=== PATIENT | male | born 2000 | race Caucasian/White ===

== ENCOUNTER 2018-02-07 18:53 | Emergency (ER) | payer BC ==
[~2018-02-07] VITALS: Ht 177.8 cm; Wt 62.6 kg
[2018-02-07] MEDS ORDERED: Keflex500 MG PO (19:54)
== END 2018-02-07 20:04 | disposition home or self-care (01) ==
LOC: ER 18:53
DX: S91.114A Laceration without foreign body of right lesser toe(s) without damage to nail, initial encounter (principal); X58.XXXA Exposure to other specified factors, initial encounter; Y93.01 Activity, walking, marching and hiking; Y92.828 Other wilderness area as the place of occurrence of the external cause
CPT/HCPCS: 12001; 99282

== ENCOUNTER 2019-05-23 12:40 | Emergency (ER) | payer BC ==
[~2019-05-23] VITALS: Ht 175.3 cm; Wt 63.5 kg
[~2019-05-23 12:40] MED LIST: Keflex500 MG PO
[2019-05-23] MEDS ORDERED: IBUP600 PO (14:45)
== END 2019-05-23 14:49 | disposition home or self-care (01) ==
LOC: ER 12:40
DX: S40.011A Contusion of right shoulder, initial encounter (principal); F17.200 Nicotine dependence, unspecified, uncomplicated; Z88.1 Allergy status to other antibiotic agents; V86.56XA Driver of dirt bike or motor/cross bike injured in nontraffic accident, initial encounter
CPT/HCPCS: 73000; 99283-25

== ENCOUNTER 2021-12-14 17:40 | Emergency (ER) | payer OTHER ==
[~2021-12-14] VITALS: Ht 170.2 cm; Wt 68.0 kg
[~2021-12-14 17:40] MED LIST changes: +BACITO TOP; +HYDR1TAB94 PO; +IBUP600 PO
== END 2021-12-14 18:59 | disposition home or self-care (01) ==
LOC: ER 17:40
DX: S43.52XA Sprain of left acromioclavicular joint, initial encounter (principal); S50.312A Abrasion of left elbow, initial encounter; V00.131A Fall from skateboard, initial encounter; Z88.1 Allergy status to other antibiotic agents; Z79.899 Other long term (current) drug therapy; F17.200 Nicotine dependence, unspecified, uncomplicated
CPT/HCPCS: 73030; 99283-25

== ENCOUNTER 2022-07-24 08:20 | Emergency (ER) | payer SELFPAY ==
[~2022-07-24] VITALS: Ht 175.3 cm; Wt 63.5 kg
== END 2022-07-24 10:48 | disposition home or self-care (01) ==
LOC: ER 08:20
DX: M25.562 Pain in left knee (principal); W19.XXXA Unspecified fall, initial encounter; F17.200 Nicotine dependence, unspecified, uncomplicated; Z88.1 Allergy status to other antibiotic agents; Z79.899 Other long term (current) drug therapy
CPT/HCPCS: 73562-LT